=== PATIENT | male | born 1985 | race Two or more races ===

== ENCOUNTER 2021-06-16 10:15 | Emergency (ER) | payer BC ==
--- NOTE | 2021-06-16 10:57 | EDM.PDOC ---
ED HPI GENERAL MEDICAL PROBLEM - General Chief Complaint: Respiratory Problem Stated Complaint: COUGH,FATIGUE Time Seen by Provider: 06/16/21 10:16 Source of Information: Reports: Patient History Limitations: Reports: No Limitations - History of Present Illness INITIAL COMMENTS - FREE TEXT/NARRATIVE: Patient is a 35-year-old male no past medical history who presents today for not feeling well. States that he has had a dry cough. Patient denies any shortness of breath fever chills. He does report some body aches and states he still tolerating p.o. as well. He has no other complaints. - Related Data Allergies Allergy/AdvReac Type Severity Reaction Status Date / Time No Known Allergies Allergy Verified 06/16/21 10:24 Home Meds: Home Meds . [No Known Home Meds] 06/16/21 [History] Past Medical History - Past Health History Medical/Surgical History: Denies Medical/Surgical History - Infectious Disease History Infectious Disease History: Reports: Chicken Pox Social & Family History - Family History Family Medical History: No Pertinent Family History - Tobacco Use Tobacco Use Status *Q: Current Some Day Tobacco User Years of Tobacco use: 3 Packs/Tins Daily: 0.2 Second Hand Smoke Exposure: No - Caffeine Use Caffeine Use: Reports: Energy Drinks - Recreational Drug Use Recreational Drug Use: No ED ROS GENERAL - Review of Systems Review Of Systems: See Below Constitutional: Reports: Malaise HEENT: Reports: No Symptoms Respiratory: Reports: No Symptoms Cardiovascular: Reports: No Symptoms Endocrine: Reports: No Symptoms GI/Abdominal: Reports: No Symptoms : Reports: No Symptoms Musculoskeletal: Reports: No Symptoms Skin: Reports: No Symptoms Neurological: Reports: No Symptoms Psychiatric: Reports: No Symptoms Hematologic/Lymphatic: Reports: No Symptoms Immunologic: Reports: No Symptoms ED EXAM, GENERAL - Physical Exam Exam: See Below Exam Limited By: No Limitations General Appearance: Alert, WD/WN, No Apparent Distress Eye Exam: Bilateral Eye: EOMI Throat/Mouth: Normal Inspection, Normal Lips, Normal Oropharynx Respiratory/Chest: No Respiratory Distress, Lungs Clear, Normal Breath Sounds Cardiovascular: Normal Peripheral Pulses, Regular Rate, Rhythm GI/Abdominal: Normal Bowel Sounds, Soft, Non-Tender Extremities: Normal Inspection Neurological: Alert, Oriented, Normal Cognition, Normal Gait Course - Vital Signs Last Recorded V/S: Last Vital Signs Temp 99.0 F 06/16/21 10:15 Pulse 95 12/09/21 10:15 Resp 18 06/16/21 10:15 BP 150/89 H 06/16/21 10:15 Pulse Ox 94 L 06/16/21 10:15 - Orders/Labs/Meds Labs: Laboratory Tests 06/16/21 Range/Units 10:20 Influenza Type A RNA NEGATIVE (NEGATIVE) Influenza Type B RNA NEGATIVE (NEGATIVE) SARS-CoV-2 RNA ([facility]) POSITIVE H (NEGATIVE) - Re-Assessments/Exams Free Text/Narrative Re-Assessment/Exam: 06/16/21 11:32 Patient is Covid positive likely cause of patient's symptoms. Patient will be given symptomatic treatment to take at home. Departure - Departure Time of Disposition: 11:32 Disposition: Home, Self-Care 01 Condition: Good Clinical Impression: COVID - Discharge Information *PRESCRIPTION DRUG MONITORING PROGRAM REVIEWED*: Not Applicable *COPY OF PRESCRIPTION DRUG MONITORING REPORT IN PATIENT MILAGROS: Not Applicable Instructions: 10 Things You Can Do to Manage Your COVID-19 Symptoms at Home - [facility] (01/21/2021) Forms: ED Department Discharge Additional Instructions: Hoy en la janette de emergencias, sánchez prueba de Covid result positiva, esta es probablemente la causa de kamila sntomas. 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 Si tiene otros signos o sntomas preocupantes, neva regresar al servicio de urgencias; de lo contrario, timo un seguimiento con sánchez mdico de atencin primaria. Today in the ER your Covid test came back positive this is likely the cause of your symptoms. Attached is a sheet to tells you how to take care of yourself at home and things look for. If you have any other concerning signs or symptoms please read return to the ED otherwise follow-up with your primary care physician. The following information is given to patients seen in the emergency department who are being discharged to home. This information is to outline your options for follow-up care. We provide all patients seen in our emergency department with a follow-up referral. The need for follow-up, as well as the timing and circumstances, are variable depending upon the specifics of your emergency department visit. If you don't have a primary care physician on staff, we will provide you with a referral. We always advise you to contact your personal physician following an emergency department visit to inform them of the circumstance of the visit and for follow-up with them and/or the need for any referrals to a consulting specialist. The emergency department will also refer you to a specialist when appropriate. This referral assures that you have the opportunity for follow-up care with a specialist. All of these measure are taken in an effort to provide you with optimal care, which includes your follow-up. Under all circumstances we always encourage you to contact your private physician who remains a resource for coordinating your care. When calling for follow-up care, please make the office aware that this follow-up is from your recent emergency room visit. If for any reason you are refused follow-up, please contact the [facility] Emergency Department at and asked to speak to the emergency department charge nurse. Please follow up with your primary care physician. If you do not have a primary care physician, see below: [facility] [address] [place] [id number] [facility] [address] [place] [id number] Sepsis Event Note (ED) - Evaluation Sepsis Screening Result: No Definite Risk - Focused Exam Vital Signs: Vital Signs Temp Pulse Resp BP Pulse Ox 06/16/21 10:15 99.0 F 95 18 150/89 H 94 L - Assessment/Plan Plan: Patient is a 35-year-old male presents today for not feeling well. Patient has some throat pain as well but no exudates no lymphadenopathy of the throat. Lungs are clear he satting well 100 and room air. Will obtain Covid swab x-ray and reassess.
--- NOTE | 2021-06-16 11:06 | CR ---
INDICATION: Cough. COVID positive COMPARISON: None TECHNIQUE: Single-view portable chest radiograph is AP upright study FINDINGS: TUBES AND LINES: None. HEART AND MEDIASTINUM: The heart size is normal. The mediastinal contour appears normal for patient age. LUNGS AND PLEURAL SPACES: Mild patchy ground-glass opacification involving the left mid lung and both bases. Nonspecific but compatible with the history of COVID. No pleural effusion or pneumothorax OSSEOUS STRUCTURES: Age-appropriate appearance. No acute focal finding. IMPRESSION: Mild patchy ground-glass opacification involving the left mid lung and both bases. Nonspecific but compatible with the history of COVID. Dictated by Bartolo Weaver MD @ 06/16/2021 11:06:16 AM (Electronically Signed)
[2021-06-16 11:12] LABS: CORONAVIRUS COVID-19 NAA POSITIVE (NEGATIVE); INFLUENZA A NAA NEGATIVE (NEGATIVE); INFLUENZA B NAA NEGATIVE (NEGATIVE)
== END 2021-06-16 11:42 | disposition home or self-care (01) ==
LOC: MW.ED 10:15
DX: U07.1 COVID-19 (principal); Z72.0 Tobacco use
CPT/HCPCS: 0240U; 71045; 99283